=== PATIENT | male | born 1990 | race Caucasian/White ===

== ENCOUNTER → 2025-06-12 07:24 | Outpatient (REF) | payer OTHER, SELFPAY | LOC: HWRAD 07:24 | PROVIDERS: ATTENDING PHYSICIAN Otolaryngology; FAMILY PHYSICIAN Family Medicine | DX: J32.0 Chronic maxillary sinusitis (principal) | CPT/HCPCS: 70486 ==

== ENCOUNTER 2025-07-09 06:30 | Day surgery (SDC) | payer OTHER, SELFPAY ==
[2025-07-09] VITALS (9 sets, daily range): BP systolic 121–149; BP diastolic 87–106; BMI 22.5
[2025-07-09] MEDS: TYLENOL 1000 MG PO (09:37)
[2025-07-09] MEDS: NORMOSOL-R/PLASMALYTE-A 1000 IV (09:38)
[2025-07-09] MEDS: ROXICODONE 5 MG PO (14:48)
== END 2025-07-09 15:00 | disposition home or self-care (01) ==
LOC: SDS 06:30
PROVIDERS: ATTENDING PHYSICIAN Otolaryngology
DX: J34.2 Deviated nasal septum (principal); J34.3 Hypertrophy of nasal turbinates
CPT/HCPCS: 30140